=== PATIENT | female | born 1995 | race Caucasian/White ===

== ENCOUNTER 2019-12-02 04:21 | Emergency (ER) | payer MEDICAID ==
[~2019-12-02] VITALS: Ht 152.4 cm; Wt 53.2 kg
[2019-12-02] MEDS ORDERED: IBUPROFEN 600MG TABLET PO ONE (05:15)
[2019-12-02 05:23] VITALS: BP 116/77
== END 2019-12-02 06:07 | disposition home or self-care (01) ==
LOC: ER 04:21
DX: S60.212A Contusion of left wrist, initial encounter (principal); X50.9XXA Other and unspecified overexertion or strenuous movements or postures, initial encounter; Y93.89 Activity, other specified; Y92.018 Other place in single-family (private) house as the place of occurrence of the external cause
CPT/HCPCS: 29125; 73110; 73130; 81025; 99284